=== PATIENT | male | born 1970 | race Caucasian/White ===

== ENCOUNTER 2018-05-18 13:19 | Emergency (ER) | payer SELFPAY ==
[~2018-05-18] VITALS: Ht 177.8 cm; Wt 88.5 kg
[2018-05-18 13:25] VITALS: Ht 177.8 cm; Wt 88.5 kg
[2018-05-18 14:41] VITALS: BP 129/80
== END 2018-05-18 14:41 | disposition home or self-care (01) ==
LOC: ED 13:19
DX: S92.341A Displaced fracture of fourth metatarsal bone, right foot, initial encounter for closed fracture (principal); F17.210 Nicotine dependence, cigarettes, uncomplicated; Z86.73 Personal history of transient ischemic attack (TIA), and cerebral infarction without residual deficits; Z88.0 Allergy status to penicillin; Z71.6 Tobacco abuse counseling; Z98.890 Other specified postprocedural states; X58.XXXA Exposure to other specified factors, initial encounter; Y93.89 Activity, other specified; Y92.59 Other trade areas as the place of occurrence of the external cause; Y99.8 Other external cause status
CPT/HCPCS: 99406; Q0092